=== PATIENT | male | born 1950 | race Caucasian/White ===

== ENCOUNTER 2021-04-30 09:40 | Inpatient (IN) | payer MEDICARE ==
[~2021-04-30] VITALS: Ht 182.9 cm; Wt 90.0 kg
[2021-04-30 10:29] LABS: HEMOGLOBIN 13.6 gm/dl (14.0-17.5); RED BLOOD COUNT 4.81 M/UL (4.20-5.50)
[2021-04-30 10:51] LABS: BUN/CREATININE RATIO 17 (0-10)
[2021-04-30] MEDS ORDERED: MONTELUKAST SOD10 MG PO (16:55)
[2021-04-30] MEDS ORDERED: TIZANIDINE HCL2 MG PO (16:55)
[2021-04-30] MEDS ORDERED: HYDROCODON-ACE1 EAC4 PO (16:55)
[2021-04-30] MEDS ORDERED: POTASSIUM CHLO10 ME1 PO (16:56)
[2021-04-30] MEDS ORDERED: WARFARIN SODIUM6 MG PO (16:56)
[2021-04-30] MEDS ORDERED: FUROSEMIDE20 MG PO (16:57)
[2021-04-30] MEDS ORDERED: WARFARIN SODIUM1 MG PO (16:57)
[2021-04-30] MEDS ORDERED: CRESTOR40 MG PO (16:57)
[2021-05-01 03:36] LABS: HEMOGLOBIN 13.6 gm/dl (14.0-17.5); RED BLOOD COUNT 4.87 M/UL (4.20-5.50); WHITE BLOOD COUNT 5.3 K/UL (4.5-11.0)
[2021-05-01 04:05] LABS: BUN/CREATININE RATIO 19 (0-10)
[2021-05-02 04:04] LABS: HEMOGLOBIN 13.2 gm/dl (14.0-17.5); RED BLOOD COUNT 4.8 M/UL (4.20-5.50)
[2021-05-02 04:22] LABS: BUN/CREATININE RATIO 26 (0-10)
[2021-05-02 04:25] LABS: WHITE BLOOD COUNT 9.4 K/UL (4.5-11.0)
--- NOTE | 2021-05-03 14:16 | NUR ---
PT NOW ON AIRVO 60L 100%FIO2, OTHERWISE NO CHANGE
[2021-05-04 02:58] LABS: HEMOGLOBIN 14.3 gm/dl (14.0-17.5); RED BLOOD COUNT 5.09 M/UL (4.20-5.50)
[2021-05-04 03:18] LABS: BUN/CREATININE RATIO 29 (0-10)
[2021-05-05 08:54] LABS: BUN/CREATININE RATIO 29 (0-10)
[2021-05-06 04:06] LABS: HEMOGLOBIN 13.1 gm/dl (14.0-17.5); RED BLOOD COUNT 4.71 M/UL (4.20-5.50); WHITE BLOOD COUNT 13.7 K/UL (4.5-11.0)
[2021-05-06 04:30] LABS: BUN/CREATININE RATIO 27 (0-10)
[2021-05-09 03:33] LABS: HEMOGLOBIN 13.7 gm/dl (14.0-17.5); RED BLOOD COUNT 4.9 M/UL (4.20-5.50); WHITE BLOOD COUNT 10.6 K/UL (4.5-11.0)
[2021-05-09 04:05] LABS: BUN/CREATININE RATIO 37 (0-10)
[2021-05-10 04:35] LABS: HEMOGLOBIN 14.1 gm/dl (14.0-17.5); RED BLOOD COUNT 5.05 M/UL (4.20-5.50)
[2021-05-10 05:08] LABS: BUN/CREATININE RATIO 39 (0-10)
[2021-05-11 03:55] LABS: HEMOGLOBIN 14.2 gm/dl (14.0-17.5); RED BLOOD COUNT 5.15 M/UL (4.20-5.50); WHITE BLOOD COUNT 12.9 K/UL (4.5-11.0)
[2021-05-11 04:39] LABS: BUN/CREATININE RATIO 46 (0-10)
[2021-05-12 03:49] LABS: HEMOGLOBIN 14.9 gm/dl (14.0-17.5); RED BLOOD COUNT 5.32 M/UL (4.20-5.50)
[2021-05-12 03:52] LABS: WHITE BLOOD COUNT 18.8 K/UL (4.5-11.0)
[2021-05-12 04:28] LABS: BUN/CREATININE RATIO 46 (0-10)
[2021-05-13 03:55] LABS: HEMOGLOBIN 14.7 gm/dl (14.0-17.5); RED BLOOD COUNT 5.21 M/UL (4.20-5.50)
[2021-05-13 04:12] LABS: BUN/CREATININE RATIO 46 (0-10)
--- NOTE | 2021-05-13 10:48 | NUR ---
05/13/21 1045 PT SPOUSE NOTIFIED OF CHANGE IN STATUS AND TRANSFER TO ICU.
[2021-05-14 05:24] LABS: HEMOGLOBIN 13.7 gm/dl (14.0-17.5); RED BLOOD COUNT 4.96 M/UL (4.20-5.50)
[2021-05-14 05:25] LABS: WHITE BLOOD COUNT 23.6 K/UL (4.5-11.0)
[2021-05-14 05:57] LABS: BUN/CREATININE RATIO 48 (0-10)
[2021-05-14 13:10] LABS: HEMOGLOBIN 12.4 gm/dl (14.0-17.5)
[2021-05-15 05:41] LABS: HEMOGLOBIN 11.8 gm/dl (14.0-17.5)
[2021-05-15 05:42] LABS: RED BLOOD COUNT 4.24 M/UL (4.20-5.50); WHITE BLOOD COUNT 29.8 K/UL (4.5-11.0)
[2021-05-15 06:03] LABS: BUN/CREATININE RATIO 44 (0-10)
[2021-05-16 05:21] LABS: HEMOGLOBIN 8.1 gm/dl (14.0-17.5); RED BLOOD COUNT 3.02 M/UL (4.20-5.50); WHITE BLOOD COUNT 19.9 K/UL (4.5-11.0)
[2021-05-16 05:32] LABS: BUN/CREATININE RATIO 36 (0-10)
[2021-05-17 05:11] LABS: HEMOGLOBIN 7.9 gm/dl (14.0-17.5); RED BLOOD COUNT 2.83 M/UL (4.20-5.50)
[2021-05-17 05:13] LABS: WHITE BLOOD COUNT 14.7 K/UL (4.5-11.0)
[2021-05-17 05:29] LABS: BUN/CREATININE RATIO 38 (0-10)
[2021-05-18 09:10] LABS: RED BLOOD COUNT 2.81 M/UL (4.20-5.50); WHITE BLOOD COUNT 12.6 K/UL (4.5-11.0)
[2021-05-19 05:28] LABS: HEMOGLOBIN 9.2 gm/dl (14.0-17.5)
[2021-05-19 05:31] LABS: RED BLOOD COUNT 3.24 M/UL (4.20-5.50); WHITE BLOOD COUNT 15.8 K/UL (4.5-11.0)
[2021-05-19 05:49] LABS: BUN/CREATININE RATIO 37 (0-10)
[2021-05-19 18:22] LABS: HEMOGLOBIN 8.1 gm/dl (14.0-17.5); WHITE BLOOD COUNT 16.6 K/UL (4.5-11.0)
[2021-05-19 18:26] LABS: RED BLOOD COUNT 2.87 M/UL (4.20-5.50)
[2021-05-20 05:37] LABS: HEMOGLOBIN 7.7 gm/dl (14.0-17.5); RED BLOOD COUNT 2.82 M/UL (4.20-5.50); WHITE BLOOD COUNT 14.5 K/UL (4.5-11.0)
[2021-05-20 06:49] LABS: BUN/CREATININE RATIO 35 (0-10)
[2021-05-21 04:53] LABS: HEMOGLOBIN 8.1 gm/dl (14.0-17.5); RED BLOOD COUNT 2.87 M/UL (4.20-5.50); WHITE BLOOD COUNT 13.2 K/UL (4.5-11.0)
[2021-05-21 05:30] LABS: BUN/CREATININE RATIO 44 (0-10)
[2021-05-22 05:31] LABS: HEMOGLOBIN 7.7 gm/dl (14.0-17.5); RED BLOOD COUNT 2.78 M/UL (4.20-5.50); WHITE BLOOD COUNT 10.3 K/UL (4.5-11.0)
[2021-05-22 16:13] LABS: BODY FLUID SOURCE BRONCH LEFT LUNG; RBC (MANUAL) 6075; WBC (MANUAL) 7362.5
[2021-05-23 02:03] LABS: HEMOGLOBIN 8.2 gm/dl (14.0-17.5); RED BLOOD COUNT 2.97 M/UL (4.20-5.50)
[2021-05-23 02:29] LABS: BUN/CREATININE RATIO 57 (0-10)
[2021-05-24 05:50] LABS: WHITE BLOOD COUNT 14.2 K/UL (4.5-11.0)
[2021-05-24 05:53] LABS: RED BLOOD COUNT 2.54 M/UL (4.20-5.50)
[2021-05-24 05:54] LABS: HEMOGLOBIN 6.8 gm/dl (14.0-17.5)
[2021-05-24 06:11] LABS: BUN/CREATININE RATIO 57 (0-10)
== END 2021-05-24 16:18 | disposition expired | DRG 207 ==
LOC: ER1 09:40 → CCU 12:13 → CDU 12:13 → PROG CARE 12:13 → CCU 05-13 11:06
PROVIDERS: Emergency Medicine; Internal Medicine; Internal Medicine Pulmonary Disease; ADMIT Internal Medicine Infectious Disease
PROC: 5A0935A Assistance with Respiratory Ventilation, Less than 24 Consecutive Hours, High Flow/Velocity Cannula (ICD-10-PCS; 2021-04-30)
PROC: 5A09457 Assistance with Respiratory Ventilation, 24-96 Consecutive Hours, Continuous Positive Airway Pressure (ICD-10-PCS; 2021-04-30)
PROC: 3E0333Z Introduction of Anti-inflammatory into Peripheral Vein, Percutaneous Approach (ICD-10-PCS; 2021-04-30)
PROC: XW033E5 Introduction of Remdesivir Anti-infective into Peripheral Vein, Percutaneous Approach, New Technology Group 5 (ICD-10-PCS; 2021-04-30)
PROC: XW0DXM6 Introduction of Baricitinib into Mouth and Pharynx, External Approach, New Technology Group 6 (ICD-10-PCS; 2021-05-01)
PROC: B24BZZZ Ultrasonography of Heart with Aorta (ICD-10-PCS; 2021-05-07)
PROC: 5A1955Z Respiratory Ventilation, Greater than 96 Consecutive Hours (ICD-10-PCS; 2021-05-13)
PROC: 0BH17EZ Insertion of Endotracheal Airway into Trachea, Via Natural or Artificial Opening (ICD-10-PCS; 2021-05-13)
PROC: 3E033XZ Introduction of Vasopressor into Peripheral Vein, Percutaneous Approach (ICD-10-PCS; 2021-05-13)
PROC: 3E033XZ Introduction of Vasopressor into Peripheral Vein, Percutaneous Approach (ICD-10-PCS; 2021-05-14)
PROC: 30233N1 Transfusion of Nonautologous Red Blood Cells into Peripheral Vein, Percutaneous Approach (ICD-10-PCS; 2021-05-14)
PROC: 02HV33Z Insertion of Infusion Device into Superior Vena Cava, Percutaneous Approach (ICD-10-PCS; 2021-05-14)
PROC: B548ZZA Ultrasonography of Superior Vena Cava, Guidance (ICD-10-PCS; 2021-05-14)
PROC: 3E0G76Z Introduction of Nutritional Substance into Upper GI, Via Natural or Artificial Opening (ICD-10-PCS; 2021-05-15)
PROC: 0W9930Z Drainage of Right Pleural Cavity with Drainage Device, Percutaneous Approach (ICD-10-PCS; 2021-05-18)
PROC: 0B968ZZ Drainage of Right Lower Lobe Bronchus, Via Natural or Artificial Opening Endoscopic (ICD-10-PCS; 2021-05-22)
PROC: 0B958ZZ Drainage of Right Middle Lobe Bronchus, Via Natural or Artificial Opening Endoscopic (ICD-10-PCS; 2021-05-22)
PROC: 0B9J8ZX Drainage of Left Lower Lung Lobe, Via Natural or Artificial Opening Endoscopic, Diagnostic (ICD-10-PCS; 2021-05-22)
PROC: 0B938ZZ Drainage of Right Main Bronchus, Via Natural or Artificial Opening Endoscopic (ICD-10-PCS; 2021-05-22)
PROC: 8E0ZXY6 Isolation (ICD-10-PCS; 2021-05-22)
PROC: 2Y41X5Z Packing of Nasal Region using Packing Material (ICD-10-PCS; principal; 2021-05-23)
PROC: 30233L1 Transfusion of Nonautologous Fresh Plasma into Peripheral Vein, Percutaneous Approach (ICD-10-PCS; 2021-05-23)
DX: U07.1 COVID-19 (principal); J95.811 Postprocedural pneumothorax; R65.21 Severe sepsis with septic shock; A41.89 Other specified sepsis; Z66 Do not resuscitate; Z51.5 Encounter for palliative care; J12.82 Pneumonia due to coronavirus disease 2019; J95.861 Postprocedural hematoma of a respiratory system organ or structure following other procedure; J80 Acute respiratory distress syndrome; J15.9 Unspecified bacterial pneumonia; B37.1 Pulmonary candidiasis; R57.1 Hypovolemic shock; E87.2 Acidosis; J44.0 Chronic obstructive pulmonary disease with (acute) lower respiratory infection; J95.859 Other complication of respirator [ventilator]; J94.8 Other specified pleural conditions; D62 Acute posthemorrhagic anemia; E87.1 Hypo-osmolality and hyponatremia; D68.9 Coagulation defect, unspecified; J93.82 Other air leak; Y83.8 Other surgical procedures as the cause of abnormal reaction of the patient, or of later complication, without mention of misadventure at the time of the procedure; T38.0X5A Adverse effect of glucocorticoids and synthetic analogues, initial encounter; E88.09 Other disorders of plasma-protein metabolism, not elsewhere classified; E86.0 Dehydration; E87.70 Fluid overload, unspecified; I95.9 Hypotension, unspecified; G62.9 Polyneuropathy, unspecified; R04.0 Epistaxis; M06.9 Rheumatoid arthritis, unspecified; I08.1 Rheumatic disorders of both mitral and tricuspid valves; G72.9 Myopathy, unspecified; L89.322 Pressure ulcer of left buttock, stage 2; G89.4 Chronic pain syndrome; L89.312 Pressure ulcer of right buttock, stage 2; E11.65 Type 2 diabetes mellitus with hyperglycemia; I25.10 Atherosclerotic heart disease of native coronary artery without angina pectoris; J60 Coalworker's pneumoconiosis; I50.9 Heart failure, unspecified; I11.0 Hypertensive heart disease with heart failure; E78.5 Hyperlipidemia, unspecified; Z95.1 Presence of aortocoronary bypass graft; Z79.01 Long term (current) use of anticoagulants; Z95.2 Presence of prosthetic heart valve; Z82.49 Family history of ischemic heart disease and other diseases of the circulatory system; Z79.4 Long term (current) use of insulin; Z99.81 Dependence on supplemental oxygen; Z79.82 Long term (current) use of aspirin; Z88.2 Allergy status to sulfonamides; Z86.73 Personal history of transient ischemic attack (TIA), and cerebral infarction without residual deficits; Z80.3 Family history of malignant neoplasm of breast; Z80.2 Family history of malignant neoplasm of other respiratory and intrathoracic organs; Z23 Encounter for immunization
CPT/HCPCS: ECHO; 31500; 36415; 36430; 36600; 71045; 74018; 80048; 80053; 80202; 81001; 82728; 82803; 82962; 83036; 83605; 83615; 83735; 83880; 84100; 84443; 85014; 85018; 85025; 85027; 85379; 85384; 85610; 85730; 86140; 86850; 86900; 86901; 86920; 86927; 87040; 87070; 87081; 87086; 87205; 89051; 93005; 93306; 94002; 94003; 94640; 94660; 94664; 94760; 94761; 96374; 97110; 97161; 97166; 97530-GP-CQ; 99285; C1729; C9113; J1100; J1205; J1335; J1644; J1650; J1940; J2060; J2185; J2248; J2250; J2370; J2543; J2704; J3010; J3370; J7030; J7050; J7070; J7120; P9016; P9017; Q9967; U0002